=== PATIENT | female | born 1980 | race Caucasian/White ===

== ENCOUNTER 2019-07-11 13:58 | Inpatient (IN) | payer MEDICAID ==
[~2019-07-11] VITALS: Ht 152.4 cm; Wt 54.4 kg
--- NOTE | 2019-07-11 14:01 | NUR ---
PATIENT AMBULATED TO BED 3 AT THIS TIME.
[2019-07-11 14:06] VITALS: BP 153/85
[2019-07-11] MEDS ORDERED: carBAMazepine 200 MG TAB PO ONE (14:25)
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
[2019-07-11] MEDS ORDERED: LORazepam 2 MG/ML VIAL ONE (15:03)
[2019-07-11] MEDS ORDERED: LORazepam 2 MG/ML VIAL IVP ONE ×2 (15:05→16:00)
--- NOTE | 2019-07-11 15:10 | NUR ---
PATIENT BEGAN TO TO EXHIBIT FULL BODY TONIC CLONIC SZ, PATIENT TURNED TO SIDE, SUCTION APPLIED. PATIENT O2 SAT 100% RA. DR PELAEZ MADE AWARE, ORDER FOR ATIVAN TO FOLLOW. NO ORAL TRUAMA NOTE, NO INCONTINENCE NOTED. PATIENT SZ LASTED APPROX 10 SECTIONS, PATIENT IS NOTE POSTICTAL, GCS 15, PERRLA 3/2MM BILAT, SPEAKING IN FULL COMPLETE SENTENCES. NO ACUTE ACUTE DISTRESS NOTED, WILL CONTINUE TO MONITOR AND WAIT FOR ORDERS
[2019-07-11] MEDS ORDERED: LACO1TAB PO (15:54)
[2019-07-11] MEDS ORDERED: KEP500 PO (15:54)
[2019-07-11] MEDS ORDERED: CARB200T1 PO (15:54)
[2019-07-11] MEDS ORDERED: LORazepam 2 MG/ML VIAL IM/IVP PRN (16:00)
[2019-07-11] MEDS ORDERED: HYDROcodone/APAP 5/325 MG 1 TAB TAB PO PRN (16:00)
[2019-07-11] MEDS ORDERED: MORPHINE SULFATE 2 MG/ML SYR IVP PRN (16:00)
--- NOTE | 2019-07-11 16:00 | NUR ---
PT BEEN HAVING MULTPLE BREAKTHROUGH SZ. POST SZ PT HAS BEEN A&O X4 , NO ORAL TRAUMA. NO INCONTIENCE EPISODES. PERRLA 3/2MM. ORDERED 0.5MG ATIVAN. ATIVAN GIVEN.
--- NOTE | 2019-07-11 16:20 | NUR ---
BLOOOD SUGAR 89.
--- NOTE | 2019-07-11 16:23 | NUR ---
LAB AT BEDSIDE
--- NOTE | 2019-07-11 16:25 | NUR ---
PT IS BED COMFORTABLY. NO RESP DISTRESS NOTED. AROUSABLE WITH STIMULI TOUCH.
[2019-07-11 16:33] LABS: BASOPHILS % (AUTO) 0.6 % (0.0-2.0); EOSINOPHILS % (AUTO) 0.6 % (0.0-4.0); HEMATOCRIT 37.8 % (36-48); LYMPHOCYTES # (AUTO) 1.3 K/uL (2.5-16.5); LYMPHOCYTES % (AUTO) 25.6 % (20.5-51.1); MEAN CORPUSCULAR HEMOGLOBIN 29 pg (27-31); MEAN CORPUSCULAR HGB CONC 32 g/dL (33-37); MEAN CORPUSCULAR VOLUME 90.3 fL (80-94); MONOCYTES # (AUTO) 0.3 K/uL (0.8-1.0); MONOCYTES % (AUTO) 6.3 % (1.7-9.3); NEUTROPHILS # (AUTO) 3.3 K/uL (1.8-7.7); NEUTROPHILS % (AUTO) 66.9 % (42.2-75.2); PLATELET COUNT (AUTO) 366 K/uL (140-450); RED BLOOD CELL COUNT(AUTO) 4.19 MIL/uL (4.20-5.40); RED CELL DISTRIBUTION WIDTH 26.5 % (11.6-13.7); WHITE BLOOD COUNT (AUTO) 4.9 K/uL (4.8-10.8)
--- NOTE | 2019-07-11 16:45 | NUR ---
RECEIVED PT FROM ER IN [facility]. PT ASLEEP IN STABLE CONDITION. SKIN INTACT. RESPIRATIONS EVEN AND UNLABORED. IV IN PLACE R EJ 18G. PT ON ROOM AIR. FULL CODE. BED IN LOW POSITION, SAFETY MEASURES IN PLACE. WILL CONTINUE TO MONITOR.
--- NOTE | 2019-07-11 16:56 | NUR ---
Pt report given to REBECCA MIRANDA. Transfer of care at this time. ROOM 121-B
[2019-07-11 17:02] LABS: ALBUMIN 3.3 g/dL (3.4-5.0); ANION GAP 9.5 (8-16); CARBON DIOXIDE 29.4 mmol/L (21-32); CREATININE 0.6 mg/dL (0.6-1.3); POTASSIUM 3.9 mmol/L (3.5-5.1); TOTAL BILIRUBIN 0.1 mg/dL (0.0-1.0)
[2019-07-11 17:03] LABS: PROTHROMBIN TIME 9.4 secs (10.8-13.4)
[2019-07-11 17:16] LABS: AMYLASE 54 U/L (25-115); LIPASE 121 U/L (73-393); MAGNESIUM 2.1 mg/dL (1.8-2.4); PHOSPHORUS 3.3 mg/dL (2.5-4.9)
[2019-07-11 17:46] LABS: THYROID STIMULATING HORMONE 1.22 uIU/mL (0.34-3.74)
[2019-07-11 17:49] VITALS: BP 145/73
[2019-07-11] MEDS: NACL 0.9% 1,000 ML IV SCH (18:07)
[2019-07-11 18:42] LABS: APPEARANCE,URINE CLEAR (CLEAR); BILIRUBIN,URINE NEGATIVE (NEGATIVE); BLOOD, URINE NEGATIVE (NEGATIVE); COLOR,URINE YELLOW (YELLOW); LEUKOCYTE ESTERASE ,URINE TRACE (NEGATIVE); NITRITE, URINE NEGATIVE (NEGATIVE); UGLUCOSE NEGATIVE (NEGATIVE)
[2019-07-11 18:55] LABS: RBC,URINE NONE SEEN /HPF (0-5); WBC,URINE 0-5 /HPF (0-5)
[2019-07-11 18:56] LABS: BARBITURATE, URINE NEG. ng/ml (NEG <=200); BENZODIAZEPINE, URINE NEG. ng/mL (NEG <=200); CANNABINOID, URINE NEG. ng/mL (NEG <=50); COCAINE, URINE NEG. ng/mL (NEG <=300); OPIATE, URINE NEG. ng/mL (NEG <=2000); PHENCYCLIDINE SCREEN,URINE NEG. ng/mL (NEG <=25)
[2019-07-11] MEDS ORDERED: levETIRAcetam 1,000 MG in NACL 0.9% 100 ML IV SCH (19:00)
--- NOTE | 2019-07-11 19:00 | NUR ---
MEDICATIONS ADMINISTERED PER ORDER. SAFET MEASURES IN PLACE. CALL LIGHT WITHIN REACH. WILL CONTINUE TO MONITOR
--- NOTE | 2019-07-11 19:05 | NUR ---
RECEIVED REPORT FROM SUSU FERNANDEZ. PT IN BED RESTING ARROUSABLE TO NAME. GCS 15. RR EVEN/UNLABORED. NAD NOTED. SKIN WARM AND DRY TO TOUCH. CAP REFILL<3. PT IN RELAXED POSITION. NO COMPLAINTS AT THIS TIME. IV PATENT AND INTACT, INFUSING WELL. SKIN IN TACT. LUNGS CLEAR BILAT. SUCTION SET UP AT THE BEDSIDE, SEIZURE PRECAUTIONS IN PLACE. WILL CONTINUE TO MONITOR.
--- NOTE | 2019-07-11 19:25 | NUR ---
PT GIVEN TO NIGHT NURSE IN STABLE CONDITION FOR CONTINUITY OF CARE.
[2019-07-11 20:00] VITALS: BP 128/75
[2019-07-11] MEDS: VALPROATE SODIUM 1,000 MG in NACL 0.9% 100 ML IV SCH (21:00)
[2019-07-11] MEDS: LORazepam 2 MG/ML VIAL IM/IVP PRN (21:15)
--- NOTE | 2019-07-11 21:15 | NUR ---
PT HAD SEIZURE AT THIS TIME, ATIVAN GIVEN PER MD ORDER. SEIZURE LASTING 10 SECONDS, TONIC CLONIC. AIRWAY PATENT. O2 SAT: 98%. NAD NOTED. MD AWARE OF INCIDENT. WILL CONTINUE TO MONITOR
[2019-07-12] VITALS: BP 122/69
[2019-07-12] MEDS: LEVOFLOXACIN 500 MG/D5W PREMIX 100 ML IV SCH
--- NOTE | 2019-07-12 01:30 | NUR ---
pt attempting to get out of bed at this time. explained to pt she cannot due to seizures. pt states, "i need to leave and find my boyfriend." pt redirected in bed. 1:[address]
--- NOTE | 2019-07-12 02:20 | NUR ---
pt attempting to get out of bed again. pt states, " are you deaf, what the fuck is wrong with you i need to leave and get out of here." explained to pt her plan of care while here as well as seizure dissorder. pt states, "the medications dont matter."
--- NOTE | 2019-07-12 03:15 | NUR ---
pt stating she wants to leave and does not want to stay. redirected pt to importance of patient care.
[2019-07-12] MEDS: LORazepam 2 MG/ML VIAL IM/IVP PRN ×5 (03:41→16:03)
[2019-07-12 03:51] VITALS: BP 118/79
[2019-07-12] MEDS: VALPROATE SODIUM 1,000 MG in NACL 0.9% 100 ML IV SCH ×3 (04:02→21:01)
[2019-07-12] MEDS: levETIRAcetam 1,000 MG in NACL 0.9% 100 ML IV SCH ×3 (05:32→21:00)
[2019-07-12 06:33] LABS: ANION GAP 14.6 (8-16); CARBON DIOXIDE 24.7 mmol/L (21-32); CREATININE 0.5 mg/dL (0.6-1.3); POTASSIUM 4.3 mmol/L (3.5-5.1)
[2019-07-12 06:42] LABS: MAGNESIUM 1.9 mg/dL (1.8-2.4); PHOSPHORUS 3.6 mg/dL (2.5-4.9)
--- NOTE | 2019-07-12 06:56 | NUR ---
Report given to Yaakov FERNANDEZ for continuity of care.
[2019-07-12 07:09] LABS: BASOPHILS % (AUTO) 0.6 % (0.0-2.0); EOSINOPHILS % (AUTO) 0.1 % (0.0-4.0); HEMATOCRIT 37.3 % (36-48); HEMOGLOBIN 11.9 g/dL (12.0-16.0); LYMPHOCYTES # (AUTO) 1.5 K/uL (2.5-16.5); LYMPHOCYTES % (AUTO) 18.2 % (20.5-51.1); MEAN CORPUSCULAR HEMOGLOBIN 29 pg (27-31); MEAN CORPUSCULAR HGB CONC 32 g/dL (33-37); MEAN CORPUSCULAR VOLUME 91.2 fL (80-94); MONOCYTES # (AUTO) 0.7 K/uL (0.8-1.0); MONOCYTES % (AUTO) 7.9 % (1.7-9.3); NEUTROPHILS # (AUTO) 6.1 K/uL (1.8-7.7); NEUTROPHILS % (AUTO) 73.2 % (42.2-75.2); PLATELET COUNT (AUTO) 381 K/uL (140-450); RED BLOOD CELL COUNT(AUTO) 4.09 MIL/uL (4.20-5.40); RED CELL DISTRIBUTION WIDTH 26.6 % (11.6-13.7); WHITE BLOOD COUNT (AUTO) 8.4 K/uL (4.8-10.8)
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
[2019-07-12 08:00] VITALS: BP 165/117
--- NOTE | 2019-07-12 08:23 | NUR ---
PATIENT HAS BEEN SCREENED AND CATEGORIZED LOW NUTRITION RISK. PATIENT WILL BE SEEN WITHIN 7 DAYS OF ADMISSION. 07/18/[address]
[2019-07-12] MEDS: NACL 0.9% 1,000 ML IV SCH (08:39)
--- NOTE | 2019-07-12 09:30 | NUR ---
PT HAD 40 SECOND TONIC CLONIC SEIZURE. ATIVAN GIVEN PER ORDERS. WILL NOTIFY MD. WILL CONTINUE TO MONITOR.
[2019-07-12] MEDS: LACTOBACILLUS RHAMNOSUS GG 1 EACH CAP PO SCH (09:32)
--- NOTE | 2019-07-12 10:30 | NUR ---
PT HAD ANOTHER TONIC CLONIC SEIZURE LASTING 15 SECONDS. ATIVAN GIVEN PER ORDERS. WILL CONTINUE TO MONITOR.
[2019-07-12] MEDS ORDERED: VALPROATE SODIUM 1,000 MG in NACL 0.9% 100 ML IV SCH (11:00)
[2019-07-12 12:00] VITALS: BP 133/98
--- NOTE | 2019-07-12 13:00 | NUR ---
MEDICATIONS ADMINISTERED PER ORDER. PT TOLERATED WELL. NO DISTRESS NOTED. SAFETY MEASURES IN PLACE. WILL CONTINUE TO MONITOR.
--- NOTE | 2019-07-12 14:48 | NUR ---
GUSTABO attempted to conduct assessment with patient. Patient requested for SW to come back. SW will follow up to complete assessment. Addendum: 07/13/19 at 1012 by Tha Gandhi GUSTABO followed up with patient. GUSTABO attempted to conduct assessment but patient refused.
[2019-07-12 16:00] VITALS: BP 130/89
--- NOTE | 2019-07-12 16:00 | NUR ---
PATIENT HAD TONIC CLONIC SEIZURE LASTING 20 SECONDS, BOYFRIEND AT BEDSIDE. ATIVAN GIVEN PER MD ORDERS. WILL CONTINUE TO MONITOR.
--- NOTE | 2019-07-12 19:10 | NUR ---
HAND OFF OF PT TO NIGHT NURSE IN STABLE CONDITION FOR CONTINUITY OF CARE. SAFETY MEASURES IN PLACE. CALL LIGHT WITHIN REACH.
--- NOTE | 2019-07-12 19:20 | NUR ---
RECEIVED FROM AM RN IN BED SLEEPING. MALE VISITOR AT BEDSIDE. PT. DX. OF SEIZURES. ON 02 AT 2 LPM/NC AND PRESENTLY WITH 02 SAT OF 100 %. DX. OF SEIZURES. PT. WITH SITTER . VITAL SIGNS WITH IN NORMAL VALUES. TELEMETRY MONITORING. IVF SITES INTACT AND WITH GOOD BLOOD RETURN. NO S/S OF INFILTRATION.
--- NOTE | 2019-07-12 20:00 | NUR ---
MALE VISITOR/BOYFRIEND LEFT ADVISED PER PROTOCOL. LEFT WITH NO COMPLAINTS DONE. PT. SLEEPING. BED ALARM ON.
[2019-07-12 20:19] VITALS: BP 100/66
[2019-07-12] MEDS ORDERED: carBAMazepine 200 MG TAB PO SCH (21:00)
--- NOTE | 2019-07-12 21:30 | NUR ---
PT. WOKE UP FOR P.O. MEDICATION. NOTED PT. ABLE TO UNDERSTAND [place] AND [place] WELL. REFUSED TO WAKE UP WHEN I TRIED TO WAKE HER UP AND BUT WHEN CHARGE NURSE CAME IN AND SPOKE TO HER IN [place] SHE WOKE UP AND OPENED EYES AND STRETCHED HER ARMS LIKE SHE WAS GOING TO HAVE A SEIZURE BUT APPARENTLY NOT A SEIZURE BUT JUST STRETCHING. ABLE TO SWALLOW HER P.O. MEDICATION WELL AND AGREED TO SWALLOW IT WITH APPLE SAUCE. PT. LIKED APPLE SAUCE AND WANTED ME TO GIVE ALL OF IT TO HER. TELEMETRY MONITORING AND VITAL SIGNS WITH IN NORMAL LIMITS. BED ALARM ON AND WILL BE MONITORED CLOSELY AND FREQUENTLY. WITH PADDED SIDE RAILS FOR SEIZURE PRECAUTIONS AND PLACED ON FALL RISK WATCH.
--- NOTE | 2019-07-12 22:30 | NUR ---
PT. SLEEPING. TELEMETRY MONITORING. NO NOTED SEIZURES THIS SHIFT YET.
[2019-07-13] VITALS: BP 130/72
--- NOTE | 2019-07-13 | NUR ---
PT. BEDDING CHANGED RT WET WITH URINE. CALL LIGHT WITH IN REACH. NO COMPLAINTS DONE. NO RESTLESSNESS. NO SOB. VITAL SIGNS TAKEN AND WITH IN REACH.
[2019-07-13] MEDS: LEVOFLOXACIN 500 MG/D5W PREMIX 100 ML IV SCH (01:08)
[2019-07-13] MEDS: NACL 0.9% 1,000 ML IV SCH ×2 (01:18→17:59)
--- NOTE | 2019-07-13 01:49 | NUR ---
SLEEPING WELL. CALL LIGHT WITH IN REACH.
[2019-07-13] MEDS: LORazepam 2 MG/ML VIAL IM/IVP PRN (04:02)
--- NOTE | 2019-07-13 04:03 | NUR ---
PT. HAD A TONIC CLONIC SEIZURE LASTING 60 SECONDS . TURNED PT. TO LEFT SIDE RT DROOLING. ATIVAN 1 MG. IVP ADMINISTERED. KEPT PT. SAFE IN BED. WOKE UP AFTER AND ABLE TO OPEN EYES NORMALLY AND WENT BACK TO SLEEP . BP 118/67 PULSE 79 AND 02 SAT 100 % WITH 02 AT 2LPM/NC. CHARGE NURSE AWARE . ON TELEMETRY MONITORING. TELEMETRY MONITORING.
[2019-07-13 04:12] VITALS: BP 118/67
[2019-07-13] MEDS: levETIRAcetam 1,000 MG in NACL 0.9% 100 ML IV SCH ×3 (04:50→20:53)
[2019-07-13] MEDS: VALPROATE SODIUM 1,000 MG in NACL 0.9% 100 ML IV SCH ×3 (05:00→20:52)
--- NOTE | 2019-07-13 06:09 | NUR ---
PT. AWAKE AT THIS TIME AND CNAS RENDERED PERSONAL HYGIENE T O HER RT BEDDING WET WITH URINE. CT SCAN TECH IN HERE TO COLLECT BLOOD SAMPLE. TOLERATED WELL. ABLE TO SAY YES AND NOD HEAD TO COMMUNICATE. WILL ENDORSE TO AM RN FOR CONTINUITY OF CARE.
[2019-07-13 06:16] LABS: ANION GAP 16.3 (8-16); CREATININE 0.7 mg/dL (0.6-1.3); POTASSIUM 4.3 mmol/L (3.5-5.1)
[2019-07-13 06:19] LABS: MAGNESIUM 2.1 mg/dL (1.8-2.4); PHOSPHORUS 4.7 mg/dL (2.5-4.9)
--- NOTE | 2019-07-13 07:40 | NUR ---
RECEIVED PT, PT SLEEPING BUT AROUSABLE. ABLE TO FOLLOW COMMANDS. ON O2 NC 2L/MIN. NO S/S OF RESPIRATORY DISTRESS NOTED. PT HAS IV TO LEFT HAND RUNNING 0.9 NS AT 60 CC/HR. CALL LIGHT IN REACH, WILL CONTINUE TO MONITOR PT.
[2019-07-13 08:00] VITALS: BP 148/94
[2019-07-13] MEDS: LACTOBACILLUS RHAMNOSUS GG 1 EACH CAP PO SCH (09:51)
[2019-07-13] MEDS ORDERED: levETIRAcetam 1,000 MG in NACL 0.9% 100 ML IV SCH (10:00)
[2019-07-13 10:41] LABS: BASOPHILS % (AUTO) 0.4 % (0.0-2.0); EOSINOPHILS % (AUTO) 0.1 % (0.0-4.0); HEMATOCRIT 38.7 % (36-48); HEMOGLOBIN 12.1 g/dL (12.0-16.0); LYMPHOCYTES # (AUTO) 1.2 K/uL (2.5-16.5); LYMPHOCYTES % (AUTO) 20.9 % (20.5-51.1); MEAN CORPUSCULAR HEMOGLOBIN 29 pg (27-31); MEAN CORPUSCULAR HGB CONC 31 g/dL (33-37); MEAN CORPUSCULAR VOLUME 91.3 fL (80-94); MONOCYTES # (AUTO) 0.5 K/uL (0.8-1.0); MONOCYTES % (AUTO) 8.5 % (1.7-9.3); NEUTROPHILS # (AUTO) 4.1 K/uL (1.8-7.7); NEUTROPHILS % (AUTO) 70.1 % (42.2-75.2); PLATELET COUNT (AUTO) 397 K/uL (140-450); RED BLOOD CELL COUNT(AUTO) 4.24 MIL/uL (4.20-5.40); RED CELL DISTRIBUTION WIDTH 26.4 % (11.6-13.7); WHITE BLOOD COUNT (AUTO) 5.9 K/uL (4.8-10.8)
--- NOTE | 2019-07-13 11:27 | NUR ---
PT IS SLEEPING, BOYFRIEND AT BEDSIDE. NOTIFIED PT WE NEED SOME URINE SAMPLE. SAMPLE CONTAINER OFFERED TO PT.
[2019-07-13 12:00] VITALS: BP 140/80
--- NOTE | 2019-07-13 15:30 | NUR ---
URINE SAMPLE SENT TO LAB
[2019-07-13 16:00] VITALS: BP 140/84
--- NOTE | 2019-07-13 16:40 | NUR ---
PT HR 92S AT THIS MOMENT. PT HR WAS ST 110 S AT FOUR PM. PT SLEEPING NOW.
--- NOTE | 2019-07-13 18:55 | NUR ---
PT RESTING IN BED. ATE 10 % OF THE DINNER TRAY.
--- NOTE | 2019-07-13 19:20 | NUR ---
RECEIVED FROM AM RN IN BED SLEEPING BUT WAKES UP WHEN TOUCHED. NO COMPLAINTS DONE. NO REPORTED SEIZURE ACTIVITY FROM AM SHIFT. WILL MONITOR PT. FOR FURTHER SEIZURE. IVF SITES INTACT AND NO INFILTRATION. PATENT AND WITH GOOD BLOOD RETURN. ON TELEMETRY MONITORING.
[2019-07-13 20:00] VITALS: BP 138/78
--- NOTE | 2019-07-13 20:30 | NUR ---
FATHER LEFT AND PT. SLEEPING. NO COMPLAINTS DONE. ENCOURAGED TO COME IN AM TO BE ABLE TO TALK TO MD AND CAMERA MAKER. Addendum: 07/14/19 at 0054 by Verna Nolasco RN ABOVE CHARTING FOR 2229.
[2019-07-13] MEDS: carBAMazepine 200 MG TAB PO SCH (20:52)
--- NOTE | 2019-07-13 21:30 | NUR ---
FATHER IN HERE VISITING. FATHER ABLE TO TALK WITH DAUGHTER. NO COMPLAINTS DONE.
[2019-07-14] VITALS (8 sets, daily range): BP systolic 128–145; BP diastolic 72–94
[2019-07-14] MEDS: LEVOFLOXACIN 500 MG/D5W PREMIX 100 ML IV SCH (00:40)
--- NOTE | 2019-07-14 00:47 | NUR ---
SLEEPING AT THIS TIME. NO RESTLESSNESS. TELEMETRY MONITORING.
--- NOTE | 2019-07-14 02:00 | NUR ---
PT. SLEEPING WELL. NO RESTLESSNESS. NO SEIZURE EPISODE OBSERVED. ASSISTED WITH ADLS . TURNS SELF INDEPENDENTLY SIDE TO SIDE AND SUPINE. AFEBRILE.
[2019-07-14] MEDS: NACL 0.9% 1,000 ML IV SCH (02:11)
[2019-07-14] MEDS: VALPROATE SODIUM 1,000 MG in NACL 0.9% 100 ML IV SCH ×3 (04:24→22:37)
[2019-07-14] MEDS: levETIRAcetam 1,000 MG in NACL 0.9% 100 ML IV SCH ×3 (04:36→22:42)
--- NOTE | 2019-07-14 04:48 | NUR ---
P0T. BEEN SLEEPING WELL THIS SHIFT. OPENS EYES WHEN TOUCHED. ABLE TO SWALLOW P.O. MEDICATIONS WELL. AFEBRILE. NO SEIZURE SINCE START OF MY SHIFT.
[2019-07-14 06:56] LABS: BASOPHILS % (AUTO) 0.5 % (0.0-2.0); EOSINOPHILS % (AUTO) 0.7 % (0.0-4.0); HEMATOCRIT 33.8 % (36-48); LYMPHOCYTES # (AUTO) 1.7 K/uL (2.5-16.5); LYMPHOCYTES % (AUTO) 35.6 % (20.5-51.1); MEAN CORPUSCULAR HEMOGLOBIN 30 pg (27-31); MEAN CORPUSCULAR HGB CONC 33 g/dL (33-37); MEAN CORPUSCULAR VOLUME 90.7 fL (80-94); MONOCYTES # (AUTO) 0.5 K/uL (0.8-1.0); MONOCYTES % (AUTO) 9.5 % (1.7-9.3); NEUTROPHILS # (AUTO) 2.6 K/uL (1.8-7.7); NEUTROPHILS % (AUTO) 53.7 % (42.2-75.2); PLATELET COUNT (AUTO) 212 K/uL (140-450); RED BLOOD CELL COUNT(AUTO) 3.72 MIL/uL (4.20-5.40); RED CELL DISTRIBUTION WIDTH 27.1 % (11.6-13.7); WHITE BLOOD COUNT (AUTO) 4.8 K/uL (4.8-10.8)
--- NOTE | 2019-07-14 07:15 | NUR ---
RECEIVED REPORT FROM PLANT TAXONOMIST NURSE. PT AROUSABLE TO NAME, ORIENTED X4, NO C/O PAIN AT THIS TIME. PT ON CONTRACT MANAGEMENT SPECIALIST. IV ON RT EJ 18 GA AND LT FA 22 GA, BOTH PORTS FLUSHING WITH NO RESISTANCE. RESPIRATIONS EVEN AND UNLABORED ON RA. ABD SOFT, BS ACTIVE. PT ON FALL RISK AND SEIZURE PRECAUTIONS, SAFETY MEASURES IN PLACE, CALL LIGHT WITHIN REACH. SKIN IS INTACT, WARM TO TOUCH. REVIEWED POC WITH PT, PT VERBALIZED UNDERSTANDING.
[2019-07-14 07:34] LABS: ANION GAP 13.5 (8-16); CARBON DIOXIDE 24.7 mmol/L (21-32); CREATININE 0.5 mg/dL (0.6-1.3); POTASSIUM 4.2 mmol/L (3.5-5.1)
[2019-07-14 08:13] LABS: MAGNESIUM 1.8 mg/dL (1.8-2.4); PHOSPHORUS 3.3 mg/dL (2.5-4.9)
[2019-07-14] MEDS: carBAMazepine 200 MG TAB PO SCH ×2 (09:41→21:00)
[2019-07-14] MEDS: LACTOBACILLUS RHAMNOSUS GG 1 EACH CAP PO SCH (09:41)
--- NOTE | 2019-07-14 09:41 | NUR ---
PT GIVEN MEDICATIONS PER ORDER. REVIEWED INDICATIONS AND POTENTIAL SIDE EFFECTS WITH PT.
--- NOTE | 2019-07-14 09:50 | NUR ---
CHRISTO/PT WAS ABLE TO SIT UP AND STAND UP AND ASSIST PT WITH A FEW STEPS TO THE FRONT AND SIDE. PT STATES "I HAVE MY PERIOD"; LINENS AND GOWN CHANGED. PRINTED CIRCUIT BOARD PCB DESIGNER AND STUDENT NURSE PROVIDED BARI AND SKIN CARE.
[2019-07-14] MEDS ORDERED: KEP500 PO (11:38)
[2019-07-14] MEDS ORDERED: DIVA500T1 PO (11:38)
[2019-07-14] MEDS ORDERED: CARB200T1 PO (11:38)
--- NOTE | 2019-07-14 11:45 | NUR ---
PER KIERSTEN/BOYFRIEND AT BEDSIDE, PT HAD 3-SECOND SEIZURE LIKE ACTIVITY, STATES "SHE FROZE UP AND STARTED MOANING". DR. VILLASEÑOR NOTIFIED. PT IS ASLEEP, ON FOOD SERVICE SUPERVISOR. NO SIGNS OF DISTRESS AT THIS TIME.
--- NOTE | 2019-07-14 12:35 | NUR ---
WITNESSED SEIZURE LIKE ACTIVITY. PT FROZE UP WITH BOTH ARMS AT A 90 DEGREE ANGLE FOR 2-SECONDS. PT ON COMMUNICATIONS BILLING ANALYST, VSS.
--- NOTE | 2019-07-14 13:00 | NUR ---
PT IS RESTING COMFORTABLY IN BED. NO SIGNS OF DISTRESS AT THIS TIME.
--- NOTE | 2019-07-14 17:08 | NUR ---
PER BOYFRIEND/KIERSTEN, PT HAD SEIZURE-LIKE ACTIVITY AT 1700 FOR 15 SECONDS. PT LEFT HAND FROZE AT A 90 DEGREE ANGLE, AND RT HAND WAS UP TOWARDS THE RT EAR. VSS STABLE AT THIS TIME. NO SIGNS OF DISTRESS. WILL CONTINUE TO MONITOR. SEIZURE PRECAUTIONS IN PLACE.
--- NOTE | 2019-07-14 18:45 | NUR ---
PT IS DIFFICULT TO AROUSE, DROWSY AND ORIENTED X2 TO PERSON AND PLACE. PT WAS ABLE TO EAT 12% OF DINNER. KIERSTEN/BOYFRIEND AT BEDSIDE.
--- NOTE | 2019-07-14 19:05 | NUR ---
ENDORSED PT TO SLIVER LAPPER NURSE. PT HAS NO SIGNS OF DISTRESS AT THIS TIME.
--- NOTE | 2019-07-14 19:05 | NUR ---
RECEIVED REPORT FROM AB RN DAYSHIFT NURSE AT BEDSIDE FOR CONTINUITY OF CARE, PT IN STABLE CONDITION.
--- NOTE | 2019-07-14 19:30 | NUR ---
PT IS DROWSY BUT AWAKE AND, AROUSABLE TO NAME. PT EYES EQUAL AND REACTIVE TO LIGHT. PT IS AOX2, SHE KNOWS WHO SHE IS AND WHERE SHE IS, BUT HAS NO IDEA OF THE DATE, MONTH AND YEAR. PT DENIES PAIN AND SHE DID SAY SHE HAS HAD A HISTORY OF SEIZURES BUT IS UNSURE ABOUT THE MEDICATION SHE SAID THAT SHE TAKES, SHE SAID THAT HER BOYFRIEND HAS IT AT THIS TIME AND SHE DOESN'T REMEMBER THE NAME OF IT. PT HAS RIGHT EJ 18 GUAGE FLUSHED PATENT WELL LEFT F/A 22G. V/S FOLLOWS T 98.5 P 87 R 18 B/P 145/92 02 97% ON ROOM AIR. ALL FALLS PRECAUTIONS IN PLACE.
--- NOTE | 2019-07-14 21:00 | NUR ---
PT GIVEN BOTH IV KEPPRA AND IV VALPROIC ACID FOR ANTISEIZURE. KEPPRA RUNNING ON LEFT F/A AND VALPROIC ACID RUNNING ON RIGHT EJ. PT TOO SLEEPY TO TAKE THE TEGRETOL. PT LOCALIZES TO PAIN, NO SEIZURES NOTED. ALL FALLS PRECAUTIONS IN PLACE.
[2019-07-15] VITALS (7 sets, daily range): BP systolic 132–147; BP diastolic 71–95
--- NOTE | 2019-07-15 | NUR ---
PT IN BED SLEEPING, SHE SAT UP AND START CRYING BUT WHEN ASKED WHY SHE STOPPED AND SAID SHE DIDN'T KNOW. SPOKE WITH AND ASKED IF SHE SHOULD RECEIVE THE TEGRETOL SHE MISSED AT 2100 DUE TO PT BEING AROUSABLE ONLY TO PAIN. MD OLMOS SAID TO GO AHEAD AND GIVE HER THE MISSED DOSE OF TEGRETOL. PT TOOK THE MEDICATION. SHE WAS THEN TURNED, CHANGED AND REPOSITIONED. PT IV SITE INTACT AND LEVAQUIN WAS HUNG ORDERED. V/S FOLLOWS T 97.9 P 80 R 18 B/P 147/87 02 100% ON ROOM AIR. BED LOW AND ALL FALLS PRECAUTIONS IN PLACE.
[2019-07-15] MEDS: LEVOFLOXACIN 500 MG/D5W PREMIX 100 ML IV SCH (01:17)
[2019-07-15] MEDS: NACL 0.9% 1,000 ML IV SCH ×2 (03:19→20:44)
--- NOTE | 2019-07-15 04:00 | NUR ---
PT IN BED V/S FOLLOWS T 97.3 P 90 R 18 B/P 143/95 02 100% ON ROOM AIR.ALL FALLS AND SEIZURE PRECAUTIONS IN PLACE.
--- NOTE | 2019-07-15 05:39 | NUR ---
PT TURNED, CHANGED AND REPOSITIONED IN BED ALL FALLS AND SEIZURE PRECAUTIONS IN PLACE. PT HAS NO S/S OF PAIN OR DISTRESS NOTED. NO SEIZURE ACTIVITY THIS SHIFT.
[2019-07-15] MEDS: VALPROATE SODIUM 1,000 MG in NACL 0.9% 100 ML IV SCH ×3 (05:45→20:43)
[2019-07-15] MEDS: levETIRAcetam 1,000 MG in NACL 0.9% 100 ML IV SCH ×3 (05:55→20:58)
--- NOTE | 2019-07-15 07:20 | NUR ---
REPORT GIVEN TO ISIDORO RN DAYSHIFT NURSE AT BEDSIDE FOR CONTINUITY OF CARE PT SLEEPING IN STABLE CONDITION ALL FALLS AND SEIZURE PRECAUTIONS IN PLACE.
--- NOTE | 2019-07-15 07:21 | NUR ---
RECEIVED REPORT FROM RECORD PRESS SUPERVISOR NURSE AT BEDSIDE FOR CONTINUITY OF CARE. PATIENT AOX2, DROWSY. RESPIRATIONS EVEN AND UNLABORED ON ROOM AIR. PATIENT DENIES PAIN, SOB, NO DISTRESS NOTED. IV SITES PATENT, INTACT, ASYMPTOMATIC. IVF INFUSING ON L FA 22G, R IJ IV SALINE LOCKED. PATIENT INCONTINENT AND ON HER PERIOD. VS WNL. UPDATED BOARD. UPDATED PLAN OF CARE WITH PATIENT. PATIENT DROWSY, REINFORCEMENT NEEDED. SAFETY PRECAUTIONS IN PLACE, CALL LIGHT WITHIN REACH, WILL CONTINUE TO MONITOR PATIENT.
[2019-07-15] MEDS: carBAMazepine 200 MG TAB PO SCH ×2 (08:53→20:53)
--- NOTE | 2019-07-15 08:53 | NUR ---
ORDERED MEDICATIONS GIVEN. PATIENT TOLERATED THEM WELL. PATIENT SITTING UP IN BED EATING BREAKFAST. PATIENT DRIFTS IN AND OUT OF SLEEP. NO COMPLAINTS AT THIS TIME. WILL CONTINUE TO MONITOR PATIENT.
[2019-07-15] MEDS: LACTOBACILLUS RHAMNOSUS GG 1 EACH CAP PO SCH (08:54)
[2019-07-15 10:59] LABS: BASOPHILS % (AUTO) 0.5 % (0.0-2.0); EOSINOPHILS % (AUTO) 0.6 % (0.0-4.0); HEMATOCRIT 33.7 % (36-48); HEMOGLOBIN 10.9 g/dL (12.0-16.0); LYMPHOCYTES # (AUTO) 1.1 K/uL (2.5-16.5); LYMPHOCYTES % (AUTO) 26.1 % (20.5-51.1); MEAN CORPUSCULAR HEMOGLOBIN 29 pg (27-31); MEAN CORPUSCULAR HGB CONC 32 g/dL (33-37); MONOCYTES # (AUTO) 0.3 K/uL (0.8-1.0); MONOCYTES % (AUTO) 6.5 % (1.7-9.3); NEUTROPHILS # (AUTO) 2.8 K/uL (1.8-7.7); NEUTROPHILS % (AUTO) 66.3 % (42.2-75.2); PLATELET COUNT (AUTO) 339 K/uL (140-450); RED BLOOD CELL COUNT(AUTO) 3.75 MIL/uL (4.20-5.40); RED CELL DISTRIBUTION WIDTH 26.9 % (11.6-13.7); WHITE BLOOD COUNT (AUTO) 4.3 K/uL (4.8-10.8)
[2019-07-15 11:16] LABS: ANION GAP 11.6 (8-16); CARBON DIOXIDE 27.3 mmol/L (21-32); POTASSIUM 3.9 mmol/L (3.5-5.1)
[2019-07-15 11:17] LABS: CREATININE 0.5 mg/dL (0.6-1.3)
[2019-07-15 11:19] LABS: TOTAL BILIRUBIN 0.3 mg/dL (0.0-1.0)
[2019-07-15 11:20] LABS: ALBUMIN 2.9 g/dL (3.4-5.0); MAGNESIUM 2.1 mg/dL (1.8-2.4); PHOSPHORUS 3.5 mg/dL (2.5-4.9)
--- NOTE | 2019-07-15 12:25 | NUR ---
ORDERED MEDICATION GIVEN. PATIENT TOLERATED IT WELL. PATIENT SITTING UP IN BED EATING LUNCH. PATIENT DRIFTS IN AND OUT OF SLEEP. NO COMPLAINTS AT THIS TIME. SAFETY PRECAUTIONS IN PLACE, WILL CONTINUE TO MONITOR PATIENT.
--- NOTE | 2019-07-15 14:25 | NUR ---
ORDERED MEDICATION GIVEN. PATIENT TOLERATED IT WELL. PATIENT RESTING WITH EYES CLOSED, RESPIRATIONS EVEN AND UNLABORED ON ROOM AIR. NO COMPLAINTS AT THIS TIME. WILL CONTINUE TO MONITOR PATIENT.
--- NOTE | 2019-07-15 15:59 | NUR ---
PATIENT'S FATHER ROSE CALLED. UPDATED HIM ON PATIENT'S STATUS AND CONDITION. HE VERBALIZED UNDERSTANDING. SAFETY AND SEIZURE PRECAUTIONS IN PLACE, CALL LIGHT WITHIN REACH, WILL CONTINUE TO MONITOR PATIENT.
--- NOTE | 2019-07-15 17:45 | NUR ---
PATIENT AWAKE, DINNER SET UP. PATIENT NOW SITTING UP IN BED EATING DINNER SLOWLY. NO COMPLAINTS AT THIS TIME. SAFETY AND SEIZURE PRECAUTIONS IN PLACE, CALL LIGHT WITHIN REACH, WILL CONTINUE TO MONITOR PATIENT.
--- NOTE | 2019-07-15 19:01 | NUR ---
LAYLA BURCH AT BEDSIDE ASSISTING PATIENT WITH DINNER. ALL NEEDS MET AT THIS TIME. WILL CONTINUE TO MONITOR PATIENT AND ENDORSE CARE TO DIRT BIKE RACER NURSE, PATIENT IN STABLE CONDITION.
--- NOTE | 2019-07-15 19:30 | NUR ---
RECEIVED FROM AM RN IN BED AWAKE AND BEING FED BY MALE VISITOR. ON TELEMETRY MONITORING. CARE PLANS FOR THE NIGHT DISCUSSED WITH THEM AND CALL LIGHT WITH IN REACH. NO SOB. NO COMPLAINTS AT THIS TIME. PADDED SIDERAILS FOR SEIZURE PRECAUTIONS.
--- NOTE | 2019-07-15 23:12 | NUR ---
PT. SLEEPING AT THIS TIME. TELEMETRY MONITORING. PT. NOTED ABLE TO VERBALIZE SIMPLE NEEDS NOW WHEN AWAKE.
[2019-07-16] MEDS: LEVOFLOXACIN 500 MG/D5W PREMIX 100 ML IV SCH (00:01)
--- NOTE | 2019-07-16 00:40 | NUR ---
PT. AWAKE AT T HIS TIME. CHANGED BEDDINGS RT WET WITH URINE. ABLE TO ANSWER SIMPLE QUESTIONS WITH YES OR NO. ENCOURAGED TO MOVE EXTREMITIES AND TURN. ROM X 4. NO SEIZURES NOTED FROM START OF SHIFT.
--- NOTE | 2019-07-16 03:05 | NUR ---
SLEEPING WELL. WAKES UP WHEN TOUCHED OR CALLED BY NAME. NO SEIZURE NOTED SINCE START OF SHIFT.
[2019-07-16 04:00] VITALS: BP 134/83
[2019-07-16] MEDS: VALPROATE SODIUM 1,000 MG in NACL 0.9% 100 ML IV SCH ×3 (04:56→20:12)
[2019-07-16] MEDS: levETIRAcetam 1,000 MG in NACL 0.9% 100 ML IV SCH ×3 (04:57→22:00)
--- NOTE | 2019-07-16 06:50 | NUR ---
NO SEIZURES NOTED THIS SHIFT. TELEMETRY MONITORING. NEEDS ANTICIPATED AND MET. ABLE TO SAY YES OR NO. KEPT CLEAN AND DRY.
--- NOTE | 2019-07-16 07:20 | NUR ---
RECEIVED REPORT FROM JAVA PORTAL DEVELOPER NURSE AT BEDSIDE FOR CONTINUITY OF CARE. PATIENT AOX2, CURRENT SLEEPING COMFORTABLY. RESPIRATIONS EVEN AND UNLABORED ON ROOM AIR. FLACC-0, NO SOB, NO DISTRESS NOTED. IV SITES PATENT, INTACT, ASYMPTOMATIC. IVF INFUSING ON L FA 22G, R IJ IV SALINE LOCKED. PATIENT INCONTINENT AND ON HER PERIOD. UPDATED BOARD. SAFETY AND SEIZURE PRECAUTIONS IN PLACE, CALL LIGHT WITHIN REACH, WILL CONTINUE TO MONITOR PATIENT.
[2019-07-16 07:39] LABS: BASOPHILS % (AUTO) 0.3 % (0.0-2.0); EOSINOPHILS # (AUTO) 0.1 K/uL (0-0.4); HEMATOCRIT 33.3 % (36-48); HEMOGLOBIN 10.7 g/dL (12.0-16.0); LYMPHOCYTES # (AUTO) 1.1 K/uL (2.5-16.5); LYMPHOCYTES % (AUTO) 22.5 % (20.5-51.1); MEAN CORPUSCULAR HEMOGLOBIN 29 pg (27-31); MEAN CORPUSCULAR HGB CONC 32 g/dL (33-37); MEAN CORPUSCULAR VOLUME 91.2 fL (80-94); MONOCYTES # (AUTO) 0.6 K/uL (0.8-1.0); MONOCYTES % (AUTO) 12.1 % (1.7-9.3); NEUTROPHILS # (AUTO) 3.1 K/uL (1.8-7.7); NEUTROPHILS % (AUTO) 63.1 % (42.2-75.2); PLATELET COUNT (AUTO) 299 K/uL (140-450); RED BLOOD CELL COUNT(AUTO) 3.66 MIL/uL (4.20-5.40); RED CELL DISTRIBUTION WIDTH 27.1 % (11.6-13.7); WHITE BLOOD COUNT (AUTO) 4.9 K/uL (4.8-10.8)
[2019-07-16 07:45] LABS: CARBON DIOXIDE 25.8 mmol/L (21-32); CREATININE 0.4 mg/dL (0.6-1.3); POTASSIUM 3.8 mmol/L (3.5-5.1)
[2019-07-16 07:50] LABS: PHOSPHORUS 3.8 mg/dL (2.5-4.9)
[2019-07-16 08:00] VITALS: BP 128/83
[2019-07-16] MEDS: LACTOBACILLUS RHAMNOSUS GG 1 EACH CAP PO SCH (08:25)
[2019-07-16] MEDS: carBAMazepine 200 MG TAB PO SCH ×2 (08:26→20:12)
--- NOTE | 2019-07-16 08:26 | NUR ---
PATIENT SITTING UP IN BED EATING BREAKFAST SLOWLY. SCHEDULED MEDICATIONS GIVEN. PATIENT TOLERATED THEM. SAFETY AND SEIZURE PRECAUTIONS IN PLACE, CALL LIGHT WITHIN REACH, WILL CONTINUE TO MONITOR PATIENT.
--- NOTE | 2019-07-16 09:55 | NUR ---
PATIENT SLEEPING COMFORTABLY IN BED, BOYFRIEND KIERSTEN AT BEDSIDE. ALL NEEDS MET AT THIS TIME. SAFETY AND SEIZURE PRECAUTIONS IN PLACE, CALL LIGHT WITHIN REACH, WILL CONTINUE MONITOR PATIENT.
--- NOTE | 2019-07-16 11:47 | NUR ---
PATIENT'S FATHER ROSE CALLED, UPDATED HIM ON PATIENT'S STATUS AND CONDITION. PATIENT CURRENTLY RESTING IN BED, BOYFRIEND KIERSTEN AT BEDSIDE. ALL NEEDS MET AT THE MOMENT, SAFETY AND SEIZURE PRECAUTIONS IN PLACE, CALL LIGHT WITHIN REACH, WILL CONTINUE TO MONITOR PATIENT.
[2019-07-16] MEDS: NACL 0.9% 1,000 ML IV SCH (11:53)
[2019-07-16 12:00] VITALS: BP 124/70
--- NOTE | 2019-07-16 12:30 | NUR ---
ORDERED MEDICATION GIVEN. PATIENT TOLERATED IT WELL. PT C/O OF PAIN AT IV SITE, L FA IV REMOVED, IV CATHETER INTACT, MINIMAL BLEEDING NOTED. BOYFRIEND AT BEDSIDE. PATIENT RESTING WITH EYES CLOSED. SAFETY AND SEIZURE PRECAUTIONS IN PLACE, CALL LIGHT WITHIN REACH, WILL CONTINUE TO MONITOR PATIENT.
--- NOTE | 2019-07-16 13:58 | NUR ---
ORDERED MEDICATION GIVEN. PATIENT TOLERATED IT WELL. BOYFRIEND AT BEDSIDE. PATIENT RESTING WITH EYES CLOSED. SAFETY AND SEIZURE PRECAUTIONS IN PLACE, CALL LIGHT WITHIN REACH, WILL CONTINUE TO MONITOR PATIENT.
[2019-07-16 16:00] VITALS: BP 126/82
--- NOTE | 2019-07-16 16:01 | NUR ---
07/16/19 RD INITIAL ASSESSMENT COMPLETED PLEASE REFER TO NUTRITION ASSESSMENT UNDER CARE ACTIVITY FOR ESTIMATED NUTRITIONAL NEEDS. RD RECOMMENDATIONS: RD RECOMMENDATIONS: 1. RECOMMEND CONTINUE REGULAR DIET 2. ADD HEALTHSHAKES TID 3. F/U 3-5 DAYS; MODERATE RISK KATY SHAH MBA, RD
--- NOTE | 2019-07-16 17:15 | NUR ---
PATIENT VOIDED AND HAD SMALL BM. PATIENT CLEANED AND CHANGED AND REPOSITIONED FOR COMFORT. PATIENT DROWSY, RESTING WITH EYES CLOSED. SAFETY AND SEIZURE PRECAUTIONS IN PLACE, CALL LIGHT WITHIN REACH, WILL CONTINUE TO MONITOR PATIENT.
--- NOTE | 2019-07-16 19:11 | NUR ---
REPORT GIVEN TO AIRCRAFT ARMAMENT MECHANIC NURSE AT BEDSIDE FOR CONTINUITY OF CARE. PATIENT IN STABLE CONDITION, SITTING UP IN BED EATING DINNER.
--- NOTE | 2019-07-16 19:15 | NUR ---
RECEIVED BEDSIDE REPORT FROM AM SHIFT RN ISIDORO, FOR PT'S CONTINUITY OF CARE. PT IS AWAKE, SITTING UP ABOUT TO EAT DINNER, ASSISTED PT TO THE TABLE. PT SEEMS TO BE TOLERATING ACTIVITY WELL. PT IS ON ROOM AIR, IS ON EMERGENCY REGISTRAR, HAS A RIGHT NECK EJ 18G INFUSING WITH NORMAL SALINE AT 60ML/HR, PT DENIES PAIN AT THIS TIME. FALL AND SEIZURE PRECAUTIONS IN PLACE. EXPLAINED TO PT THE WEIGHER AND CHARGER ROUTINE, PT VERBALIZED UNDERSTANDING. WILL MONITOR PT THROUGHOUT SHIFT.
[2019-07-16 20:00] VITALS: BP 130/84
--- NOTE | 2019-07-16 20:12 | NUR ---
VS CHECKED AND CHARTED. ADMINISTERED SCHEDULED PO AND IVPB MEDICATIONS ORDERED, PT TOLERATED THEM WELL. REMINDED THE PT TO USE CALL LIGHT WHEN NEEDED. WILL CONTINUE TO MONITOR PT.
--- NOTE | 2019-07-16 21:59 | NUR ---
PT'S IV DEPACON STILL INFUSING. IV KEEPS BEEPING SHOWING HIGH PRESSURE ALARM, INSTRUCTED PT TO KEEP PRESSURE OFF THE RIGHT NECK, PT COMPLIES BUT FORGETS. WILL CONTINUE TO MONITOR PT.
--- NOTE | 2019-07-16 23:45 | NUR ---
VS CHECKED AND CHARTED. PT SLEEPING WITH NO SIGNS OF DISTRESS. PT WOKE UP AND DENIES ANY PAIN.
[2019-07-17] VITALS: BP 131/80
--- NOTE | 2019-07-17 02:30 | NUR ---
PT LYING DOWN ASLEEP WITH NO SIGNS OF DISTRESS. WILL CONTINUE TO MONITOR PT.
--- NOTE | 2019-07-17 03:04 | NUR ---
IV SITE ON RIGHT EJ LEAKING. NEW IV INSERT ON RIGHT FOOT 20G. PT TOLERATED IT WELL.
--- NOTE | 2019-07-17 03:35 | NUR ---
PT REFUSED TO TAKE OFF RIGHT EJ IV, EXPLAINED TO PT IV NOT NEEDED ANYMORE DT LEAK. PT STATES, "I DON'T CARE". WILL RETRY LATER.
[2019-07-17 04:00] VITALS: BP 143/90
[2019-07-17] MEDS: levETIRAcetam 1,000 MG in NACL 0.9% 100 ML IV SCH ×3 (04:28→21:48)
[2019-07-17] MEDS: NACL 0.9% 1,000 ML IV SCH ×2 (04:28→21:49)
--- NOTE | 2019-07-17 04:30 | NUR ---
VS CHECKED AND CHARTED. PT LYING DOWN ASLEEP, WOKE UP WHEN TAKING OFF TAPE FROM RIGHT EJ, PT REFUSED TO BE TOUCHED. WILL TRY AGAIN LATER.
--- NOTE | 2019-07-17 05:00 | NUR ---
ADMINISTERED SCHEDULED IV MEDICATION ORDERED. WILL CONTINUE TO MONITOR PT.
[2019-07-17] MEDS: VALPROATE SODIUM 1,000 MG in NACL 0.9% 100 ML IV SCH ×2 (05:58→21:49)
--- NOTE | 2019-07-17 06:25 | NUR ---
ATTEMPTED TO DISCONTINUE IV ON RIGHT EJ, PT STILL REFUSING TO BE TOUCHED, KEPT REPEATING "I DON'T CARE" WHEN EXPLAINED THAT THE IV IS NO LONGER VIABLE. PT IS WITH NO OTHER SIGNS OF DISTRESS OTHERWISE. WILL ENDORSE TO AM SHIFT RN FOR PT'S CONTINUITY OF CARE.
--- NOTE | 2019-07-17 07:11 | NUR ---
RECEIVED REPORT FROM PLATER HELPER NURSE AT BEDSIDE FOR CONTINUITY OF CARE. PATIENT AOX2, CURRENT SLEEPING COMFORTABLY. RESPIRATIONS EVEN AND UNLABORED ON ROOM AIR. FLACC-0, NO SOB, NO DISTRESS NOTED. RIGHT EJ IV STILL IN PLACE, PER PM RN, PATIENT REFUSED TO HAVE IT REMOVED, WILL ATTEMPT IV REMOVAL AT A LATER TIME. IV IN RIGHT FOOT, 20G, INTACT, ASYMPTOMATIC INFUSING IVF WELL. PATIENT INCONTINENT AND ON HER PERIOD. UPDATED BOARD. SAFETY AND SEIZURE PRECAUTIONS IN PLACE, BED IN LOWEST POSITION WITH BRAKES AND ALARM ON, CALL LIGHT WITHIN REACH, WILL CONTINUE TO MONITOR PATIENT.
--- NOTE | 2019-07-17 07:40 | NUR ---
DOCTORS DOING ROUNDS. PATIENT STILL SLEEPING HEAVILY. WILL WAIT FOR MD ORDERS AND CONTINUE TO MONITOR PATIENT.
[2019-07-17 07:55] VITALS: BP 142/93
[2019-07-17] MEDS: LACTOBACILLUS RHAMNOSUS GG 1 EACH CAP PO SCH (08:56)
[2019-07-17] MEDS: carBAMazepine 200 MG TAB PO SCH ×2 (08:56→21:49)
--- NOTE | 2019-07-17 09:00 | NUR ---
SCHEDULED MEDICATIONS GIVEN. PATIENT TOLERATED THEM WELL. PATIENT AGREEABLE TO R EJ IV REMOVAL. IV REMOVED, IV CATHETER INTACT, MINIMAL BLEEDING NOTED, PRESSURE HELD FOR 2 MINUTES. PATIENT CURRENTLY SITTING UP EATING BREAKFAST SLOWLY BY HERSELF. ALL NEEDS MET AT THIS TIME. SAFETY AND SEIZURE PRECAUTIONS IN PLACE, CALL LIGHT WITHIN REACH, WILL CONTINUE TO MONITOR PATIENT.
--- NOTE | 2019-07-17 10:30 | NUR ---
MOTHER FREEMAN CLARKE CALLED, PHONE #[phone]. UPDATED HER WITH PLAN OF CARE. SHE VERBALIZED UNDERSTANDING. SHE STATED SHE WILL CALL AGAIN AND LEFT HER NUMBER IN CASE ANYONE NEEDED TO CONTACT HER.
--- NOTE | 2019-07-17 10:45 | NUR ---
PT IN TO SEE PATIENT. WILL WAIT FOR HER RECOMMENDATIONS.
[2019-07-17 11:41] VITALS: BP 139/85
--- NOTE | 2019-07-17 12:35 | NUR ---
PATIENT CURRENTLY SITTING UP IN BED EATING LUNCH. SCHEDULED MEDICATION GIVEN. PATIENT TOLERATING IT WELL. NO COMPLAINTS AT THIS TIME. SAFETY AND ISOLATION PRECAUTIONS IN PLACE, CALL LIGHT WITHIN REACH, WILL CONTINUE TO MONITOR PATIENT.
--- NOTE | 2019-07-17 13:49 | NUR ---
PATIENT SITTING UP IN BED DRINKING JUICE AND EATING FRUIT CUP. ASKED PATIENT IF SHE NEEDED ANYTHING, SHE STATED "NO" AND SHOOK HER HEAD. SAFETY AND SEIZURE PRECAUTIONS IN PLACE, CALL LIGHT WITHIN REACH, WILL CONTINUE TO MONITOR PATIENT.
[2019-07-17] MEDS ORDERED: DIVA500T1 PO (14:04)
--- NOTE | 2019-07-17 14:10 | NUR ---
PATIENT VOIDED, PATIENT CLEANED AND CHANGED. SAFETY AND SEIZURE PRECAUTIONS IN PLACE, CALL LIGHT WITHIN REACH, WILL CONTINUE TO MONITOR PATIENT.
[2019-07-17 15:21] LABS: BASOPHILS % (AUTO) 0.4 % (0.0-2.0); EOSINOPHILS # (AUTO) 0.2 K/uL (0-0.4); EOSINOPHILS % (AUTO) 2.5 % (0.0-4.0); HEMATOCRIT 33.7 % (36-48); HEMOGLOBIN 10.8 g/dL (12.0-16.0); LYMPHOCYTES # (AUTO) 1.1 K/uL (2.5-16.5); LYMPHOCYTES % (AUTO) 18.1 % (20.5-51.1); MEAN CORPUSCULAR HEMOGLOBIN 29 pg (27-31); MEAN CORPUSCULAR HGB CONC 32 g/dL (33-37); MEAN CORPUSCULAR VOLUME 91.4 fL (80-94); MONOCYTES # (AUTO) 0.4 K/uL (0.8-1.0); MONOCYTES % (AUTO) 6.5 % (1.7-9.3); NEUTROPHILS # (AUTO) 4.6 K/uL (1.8-7.7); NEUTROPHILS % (AUTO) 72.5 % (42.2-75.2); PLATELET COUNT (AUTO) 282 K/uL (140-450); RED BLOOD CELL COUNT(AUTO) 3.69 MIL/uL (4.20-5.40); RED CELL DISTRIBUTION WIDTH 27.1 % (11.6-13.7); WHITE BLOOD COUNT (AUTO) 6.3 K/uL (4.8-10.8)
[2019-07-17 15:42] VITALS: BP 133/82
[2019-07-17 15:51] LABS: ALBUMIN 2.9 g/dL (3.4-5.0); ANION GAP 12.4 (8-16); CARBON DIOXIDE 25.4 mmol/L (21-32); CREATININE 0.5 mg/dL (0.6-1.3); PHOSPHORUS 2.6 mg/dL (2.5-4.9); POTASSIUM 3.8 mmol/L (3.5-5.1); TOTAL BILIRUBIN 0.2 mg/dL (0.0-1.0)
--- NOTE | 2019-07-17 16:10 | NUR ---
SHAVON, PARAPROFESSIONAL EDUCATION ASSISTANT IN TO SPEAK TO THE PATIENT. WILL WAIT FOR HIS RECOMMENDATIONS.
--- NOTE | 2019-07-17 16:35 | NUR ---
FATHER ROSE CALLED, UPDATED HIM ON PATIENT'S IMPENDING DISCHARGE. ASKED FOR HIS PHONE NUMBER: [phone]. HE IS UNABLE TO PICK PATIENT UP IF DISCHARGED. NO PHONE # FOR PATIENT'S BOYFRIEND KIERSTEN. ROSE STATED HE WILL CALL BACK AND PROVIDE THAT INFORMATION.
--- NOTE | 2019-07-17 16:46 | NUR ---
SW spoke with patient regarding discharge plan. Patient requested for SW to contact patient's mother, Aysha Sawant [phone]. Per Aysha, patient would be accepted to her home [id number] [place], [place] [id number] if patient was given a ride. GUSTABO consulted with Separations Scientist Sonia and Construction Checker Maciej to arrange [facility]. SW met with patient to see if patient was amenable to plan and patient was accompanied by her boyfriend Nasim Rosario. Nasim stated that he was going to give her mother a phone call, and provide an address for her discharge on 07/18/2019. GUSTABO/MARLENY will follow up as needed.
--- NOTE | 2019-07-17 16:50 | NUR ---
PATIENT'S BOYFRIEND KIERSTEN AT BEDSIDE. REQUESTED FOR HIS #. HIS PHONE CURRENTLY OUT OF BATTERY. CANNOT PROVIDE AT THE MOMENT, BUT WILL ONCE CHARGED. HE STATED THAT HE COULD NOT TAKE PATIENT FOR THE NIGHT BECAUSE WANTED TO CLARIFY IF PATIENT'S MOTHER WILLING TO TAKE HER IF DISCHARGED.
--- NOTE | 2019-07-17 16:55 | NUR ---
CALLED DR. VILLASEÑOR TO INFORM HER OF PATIENT'S DISCHARGE STATUS. PER DR VILLASEÑOR, PATIENT CAN STAY THE NIGHT. INFORM PATIENT AND HER BOYFRIEND AT BEDSIDE. THEY VERBALIZED UNDERSTANDING.
--- NOTE | 2019-07-17 19:07 | NUR ---
REPORT GIVEN TO AUTO DEALER NURSE TA AT BEDSIDE FOR CONTINUITY OF CARE. PATIENT IN STABLE CONDITION SITTING UP AND EATING DINNER, BOYFRIEND KIERSTEN AT BEDSIDE.
--- NOTE | 2019-07-17 19:25 | NUR ---
RECEIVED REPORT FROM AM NURSE. PT AT BED AWAKE, LETHARGIC, PERRL 3MM, CALM, DOES NOT FOLLOW COMMANDS, PT ON ROOM AIR, BREATHING REGULARLY, HEART REGULAR, S1S2 PRESENT, CAP REFILL <3S, PULSES 2+ BILATERAL UPPER AND LOWER EXTREMITIES, ABDOMEN, SOFT, ROUND, NONDISTENDED, NONTENDER, BOWEL SOUNDS ACTIVE IN ALL QUADRANTS, BLADDER, SOFT, ROUND, NONDISTENDED, NONTENDER, PT HAS GENERALIZED WEAKNESS, PT HAS PERIPHERAL IV AT RIGHT FOOT 20 GAUGE, RUNNING NS AT 60 ML/HR. HOB 30 DEGREES, SIDE RAILS UP X2, BED AT LOWEST POSITION.
[2019-07-17 20:00] VITALS: BP 127/90
--- NOTE | 2019-07-17 21:30 | NUR ---
ADMINISTERED MEDICATION. PT AT BED LETHARGIC, HOB 30 DEGREES, SIDERAILS UP X2, BED AT LOWEST POSITION.
--- NOTE | 2019-07-17 23:10 | NUR ---
PT AT BED EYES CLOSED, BREATHING REGULARLY ON ROOM AIR. WILL CONTINUE TO MONITOR
[2019-07-18] VITALS: BP 150/93
--- NOTE | 2019-07-18 00:25 | NUR ---
VS CHECKED WNL. PT AT BED EYES CLOSED. HOB 30 DEGREES, SIDE RAILS UP X2, BED AT LOWEST POSITION.
--- NOTE | 2019-07-18 03:00 | NUR ---
PERFORMED ADL. PT TOLERATED PROCEDURE FAIRLY. PT IS STILL LETHARGIC.
[2019-07-18 04:00] VITALS: BP 135/78
[2019-07-18] MEDS: levETIRAcetam 1,000 MG in NACL 0.9% 100 ML IV SCH ×2 (04:53→12:16)
--- NOTE | 2019-07-18 05:15 | NUR ---
PT AT BED EYES CLOSED, BREATHING REGULARLY ON ROOM AIR, HOB 30 DEGREES, SIDERAILS UP X2, BED AT LOWEST POSITION. WILL CONTINUE TO MONITOR
[2019-07-18 06:47] LABS: ANION GAP 12.8 (8-16); CARBON DIOXIDE 23.9 mmol/L (21-32); CREATININE 0.4 mg/dL (0.6-1.3); POTASSIUM 3.7 mmol/L (3.5-5.1)
[2019-07-18 06:52] LABS: MAGNESIUM 2.1 mg/dL (1.8-2.4); PHOSPHORUS 4.3 mg/dL (2.5-4.9)
[2019-07-18 07:09] LABS: BASOPHILS % (AUTO) 0.5 % (0.0-2.0); EOSINOPHILS # (AUTO) 0.2 K/uL (0-0.4); HEMOGLOBIN 10.2 g/dL (12.0-16.0); LYMPHOCYTES # (AUTO) 2.3 K/uL (2.5-16.5); LYMPHOCYTES % (AUTO) 33.3 % (20.5-51.1); MEAN CORPUSCULAR HEMOGLOBIN 29 pg (27-31); MEAN CORPUSCULAR HGB CONC 32 g/dL (33-37); MEAN CORPUSCULAR VOLUME 91.8 fL (80-94); MONOCYTES # (AUTO) 0.6 K/uL (0.8-1.0); MONOCYTES % (AUTO) 8.1 % (1.7-9.3); NEUTROPHILS # (AUTO) 3.8 K/uL (1.8-7.7); NEUTROPHILS % (AUTO) 55.1 % (42.2-75.2); PLATELET COUNT (AUTO) 219 K/uL (140-450); RED BLOOD CELL COUNT(AUTO) 3.48 MIL/uL (4.20-5.40); RED CELL DISTRIBUTION WIDTH 27.2 % (11.6-13.7); WHITE BLOOD COUNT (AUTO) 6.9 K/uL (4.8-10.8)
--- NOTE | 2019-07-18 07:30 | NUR ---
RECEIVED REPORT FROM PM NURSE. PT SLEEPING BUT AROUSABLE. ABLE TO FOLLOW COMMANDS. ON ROOM AIR, BREATHING REGULARLY, LUNG SOUND CLEAR. HEART REGULAR, S1S2 PRESENT, CAP REFILL <3S, PULSES 2+ BILATERAL UPPER AND LOWER EXTREMITIES, ABDOMEN, SOFT, NONTENDER, BOWEL SOUNDS ACTIVE IN ALL QUADRANTS, GENERALIZED WEAKNESS NOTED. PT HAS PERIPHERAL IV AT RIGHT FOOT# 20 RUNNING 0.9 % NS AT 60 ML/HR WRAPPED WITH JJ. HOB 30 DEGREES, SIDE RAILS UP X2, BED AT LOWEST POSITION, CALL LIGHT IN REACH, WILL CONTINUE TO MONITOR.
--- NOTE | 2019-07-18 07:41 | NUR ---
CHANGE OF SHIFT GIVEN TO AM NURSE. PT AT STABLE CONDITION AT THIS TIME.
[2019-07-18 08:00] VITALS: BP 151/87
[2019-07-18] MEDS: VALPROATE SODIUM 1,000 MG in NACL 0.9% 100 ML IV SCH (08:30)
[2019-07-18] MEDS: LACTOBACILLUS RHAMNOSUS GG 1 EACH CAP PO SCH (08:31)
[2019-07-18] MEDS: carBAMazepine 200 MG TAB PO SCH (08:31)
--- NOTE | 2019-07-18 08:45 | NUR ---
PT EATING BREAKFAST, BOYFRIEND AT BEDSIDE.
[2019-07-18 10:54] VITALS: BP 140/77
--- NOTE | 2019-07-18 11:12 | NUR ---
ANGELA'S DAD CALLED IN, NOTIFIED HIM WE WILL D/C HIS DAUGHTER. PER PT'S DAD, HE WANTS TO CALL PT'S MOTHER TO SEE IS IT POSSIBLE FOR HER TO TAKE HIS DAUGHTER TO HER HOME. HE WILL CALL ME BACK.
--- NOTE | 2019-07-18 12:10 | NUR ---
CALLED PT'S DAD. NO RESPONSE. VOICE MESSAGE LEFT.
--- NOTE | 2019-07-18 12:32 | NUR ---
OFFERED PT LUNCH TRAY
[2019-07-18 13:55] VITALS: BP 136/81
--- NOTE | 2019-07-18 13:55 | NUR ---
PT AWAKE, ALERT. NO S/S OF RESPIRATORY DISTRESS NOTED. PT SIGNED D/C PAPER. ALL QUESTIONS ANSWERED. ALL PERSONAL BELONGINGS WITH PT. INSTRUCTIONS GIVEN. PT VERBALIZED UNDERSTANDING. Addendum: 07/18/19 at 1435 by Chen Hu RN HOMELESS RESOURCE GIVEN. PRESCRIPTION GIVEN. IV REMOVED WITH INTACT TIP.
[2019-07-18] MEDS ORDERED: INFLUENZA VACCINE QUAD 0.5 ML SYR IM SCH (14:00)
--- NOTE | 2019-07-18 14:17 | NUR ---
BUS PASS GIVEN. PT'S BOYFRIEND WITH PT. PT CHANGING AT THIS MOMENT.
--- NOTE | 2019-07-18 15:19 | NUR ---
USING WHEELCHAIRE TO TAKE PT TO PARKING LOT. PT'S BOYFRIEND WITH PT. PER PT'S BOYFRIEND. 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
== END 2019-07-18 15:15 | disposition home or self-care (01) | DRG 53 ==
LOC: MED 13:58 → MTU 16:04
PROVIDERS: ADMIT General Practice; ATTEND General Practice
DX: G40.409 Other generalized epilepsy and epileptic syndromes, not intractable, without status epilepticus (principal); E87.8 Other disorders of electrolyte and fluid balance, not elsewhere classified; G40.802 Other epilepsy, not intractable, without status epilepticus; D64.9 Anemia, unspecified; N39.0 Urinary tract infection, site not specified; Z88.0 Allergy status to penicillin; Z91.19 Patient's noncompliance with other medical treatment and regimen; Z59.0 Homelessness
CPT/HCPCS: 36415; 70450; 71045; 80048; 80053; 80156; 80305; 81001; 81025; 82140; 82150; 83690; 83735; 83880; 84100; 84443; 84484; 85025; 85610; 85730; 86702; 87081; 87086; 93971; 96374; 96375; 97110; 97116; 97161-GP; 97530; 99285; C1758; G0482; J1953; J1956; J2060; J3490; J7030; Q0092